=== PATIENT | female | born 1985 | race Caucasian/White ===

== ENCOUNTER 2016-12-03 14:24 | Emergency (ER) | payer OTHER ==
[2016-12-04 08:56] LABS: Ref Lab Test Ordered MUMPS CULTURE; Reference Lab Name LABCORP
== END 2016-12-03 15:53 | disposition home or self-care (01) ==
LOC: BURERS 14:24
DX: K11.20 Sialoadenitis, unspecified (principal); J45.909 Unspecified asthma, uncomplicated; F41.9 Anxiety disorder, unspecified; F32.9 Major depressive disorder, single episode, unspecified; F17.210 Nicotine dependence, cigarettes, uncomplicated
CPT/HCPCS: 36415; 86735; 99283

== ENCOUNTER 2016-12-04 08:05 | Emergency (ER) | payer OTHER | END 2016-12-04 08:13 | disposition left against medical advice (07) | LOC: BURERS 08:05 | DX: Z53.21 Procedure and treatment not carried out due to patient leaving prior to being seen by health care provider (principal) ==

== ENCOUNTER 2017-01-12 18:41 | Emergency (ER) | payer SELFPAY ==
[2017-01-12] MEDS ORDERED: Metoclopramide HCl 10 MG/2 ML VIAL ONE (22:22)
[2017-01-12] MEDS ORDERED: diphenhydrAMINE 12.5 MG/5 ML UDCUP ONE (22:23)
[2017-01-12] MEDS ORDERED: Ketorolac Tromethamine 30 MG/ML VIAL ONE (22:23)
[2017-01-12] MEDS ORDERED: diphenhydrAMINE 50 MG/ML VIAL ONE (22:23)
== END 2017-01-12 23:51 | disposition home or self-care (01) ==
LOC: BURERS 18:41
DX: G43.909 Migraine, unspecified, not intractable, without status migrainosus (principal); J45.909 Unspecified asthma, uncomplicated; F32.9 Major depressive disorder, single episode, unspecified; F17.210 Nicotine dependence, cigarettes, uncomplicated
CPT/HCPCS: 96365; 96375; J1200; J1885; J2765

== ENCOUNTER 2017-03-07 16:17 | Emergency (ER) | payer SELFPAY ==
[2017-03-07] MEDS ORDERED: Dexamethasone 4 mg/ml Vial ONE (16:46)
[2017-03-07] MEDS ORDERED: Sulfameth/Trimethoprim DS 800-160mg TAB ONE (16:46)
== END 2017-03-07 16:54 | disposition home or self-care (01) ==
LOC: BURERS 16:17
DX: J01.90 Acute sinusitis, unspecified (principal); F15.10 Other stimulant abuse, uncomplicated; G43.909 Migraine, unspecified, not intractable, without status migrainosus; J45.909 Unspecified asthma, uncomplicated; F32.9 Major depressive disorder, single episode, unspecified; F17.210 Nicotine dependence, cigarettes, uncomplicated
CPT/HCPCS: 99283; J1100

== ENCOUNTER 2017-04-17 07:58 | Emergency (ER) | payer OTHER, SELFPAY ==
[2017-04-17] MEDS ORDERED: Magnesium Sulfate 2 GM/100 ML BAG ONE (08:13)
[2017-04-17] MEDS ORDERED: diphenhydrAMINE 50 MG/ML VIAL ONE (08:44)
[2017-04-17] MEDS ORDERED: Ketorolac Tromethamine 30 MG/ML VIAL ONE (08:44)
[2017-04-17] MEDS ORDERED: Metoclopramide HCl 10 MG/2 ML VIAL ONE (08:44)
[2017-04-17] MEDS ORDERED: Acetaminophen 500 MG TAB ONE (10:01)
== END 2017-04-17 10:06 | disposition home or self-care (01) ==
LOC: BURERS 07:58
DX: G43.909 Migraine, unspecified, not intractable, without status migrainosus (principal); J45.909 Unspecified asthma, uncomplicated; F32.9 Major depressive disorder, single episode, unspecified; F17.210 Nicotine dependence, cigarettes, uncomplicated
CPT/HCPCS: 96365; 96367; 96375; J1200; J1885; J2765; J3475

== ENCOUNTER 2017-04-19 15:09 | Emergency (ER) | payer SELFPAY ==
[2017-04-19] MEDS ORDERED: Metoclopramide HCl 10 MG/2 ML VIAL ONE (15:37)
[2017-04-19] MEDS ORDERED: diphenhydrAMINE 12.5 MG/5 ML UDCUP ONE (15:37)
[2017-04-19] MEDS ORDERED: Ketorolac Tromethamine 30 MG/ML VIAL ONE (15:37)
[2017-04-19] MEDS ORDERED: diphenhydrAMINE 50 MG/ML VIAL ONE (15:39)
== END 2017-04-19 16:35 | disposition home or self-care (01) ==
LOC: BURERS 15:09
DX: G43.909 Migraine, unspecified, not intractable, without status migrainosus (principal); J45.909 Unspecified asthma, uncomplicated; F32.9 Major depressive disorder, single episode, unspecified; F17.210 Nicotine dependence, cigarettes, uncomplicated; Z79.899 Other long term (current) drug therapy
CPT/HCPCS: 96361; 96374; 96375; J1200; J1885; J2765

== ENCOUNTER 2017-06-25 11:56 | Emergency (ER) | payer SELFPAY ==
--- NOTE | 2017-06-25 20:43 | RAD ---
SACRUM AND COCCYX: 06/25/17 No fracture was appreciated within the limitations of a plain film study. The arcuate lines of the sa rafa appear intact and the SI joints are symmetrical. IMPRESSION: No significant finding. POS: HOME
== END 2017-06-25 13:04 | disposition home or self-care (01) ==
LOC: BURERS 11:56
DX: S30.0XXA Contusion of lower back and pelvis, initial encounter (principal); G43.909 Migraine, unspecified, not intractable, without status migrainosus; J45.909 Unspecified asthma, uncomplicated; F32.9 Major depressive disorder, single episode, unspecified; F17.210 Nicotine dependence, cigarettes, uncomplicated; Z79.899 Other long term (current) drug therapy; V89.2XXA Person injured in unspecified motor-vehicle accident, traffic, initial encounter
CPT/HCPCS: 72220

== ENCOUNTER 2018-03-16 18:23 | Emergency (ER) | payer SELFPAY ==
[2018-03-16] MEDS ORDERED: Oseltamivir 75 MG CAP ONE (20:01)
[2018-03-16] MEDS ORDERED: Ibuprofen 200 MG TAB ONE (20:01)
== END 2018-03-16 20:11 | disposition home or self-care (01) ==
LOC: BURERS 18:23
DX: J10.1 Influenza due to other identified influenza virus with other respiratory manifestations (principal); F41.9 Anxiety disorder, unspecified; F32.9 Major depressive disorder, single episode, unspecified; G43.909 Migraine, unspecified, not intractable, without status migrainosus; F17.210 Nicotine dependence, cigarettes, uncomplicated
CPT/HCPCS: 87804; 99283

== ENCOUNTER 2020-09-30 19:25 | Emergency (ER) | payer SELFPAY | END 2020-09-30 20:15 | disposition home or self-care (01) | LOC: BURERS 19:25 | DX: R60.0 Localized edema (principal); J45.909 Unspecified asthma, uncomplicated; G43.909 Migraine, unspecified, not intractable, without status migrainosus; F17.210 Nicotine dependence, cigarettes, uncomplicated | CPT/HCPCS: 99406 ==